=== PATIENT | male | born 1990 | race Asian ===

== ENCOUNTER 2018-06-15 11:28 | Emergency (ER) | payer OTHER ==
[~2018-06-15] VITALS: Ht 160 cm; Wt 88.0 kg
[2018-06-15 12:00] VITALS: BP 138/80
== END 2018-06-15 13:26 | disposition home or self-care (01) ==
LOC: ED 13:17
DX: B34.9 Viral infection, unspecified (principal); Z87.891 Personal history of nicotine dependence
CPT/HCPCS: 71046; 99283